=== PATIENT | female | born 1960 | race Caucasian/White ===

== ENCOUNTER 2019-03-27 09:25 | Emergency (ER) | payer OTHER ==
[~2019-03-27] VITALS: Ht 165.1 cm; Wt 72.6 kg
[~2019-03-27 09:25] MED LIST: ALDACTONE25 MG PO; COREG3.125 MG PO; DIGOXIN125 MCG PO; LISINOPRIL10 MG PO; LORTABELXR PO; PRINZIDE 20-251 EACH; ZPAK PO
[2019-03-27] MEDS ORDERED: ASA5UEC PO (09:40)
[2019-03-27] MEDS ORDERED: IBUPROFEN 800800 M1 PO (09:40)
[2019-03-27] MEDS ORDERED: ATORVASTATIN CA40 MG PO (09:40)
[2019-03-27] MEDS ORDERED: FLEXERIL PO (09:46)
[2019-03-27] MEDS ORDERED: NORCO 5-325 TA1 EACH PO (09:46)
[2019-03-27 10:14] VITALS: BP 130/90
== END 2019-03-27 10:15 | disposition home or self-care (01) ==
LOC: M.ERS 09:25
DX: S39.012A Strain of muscle, fascia and tendon of lower back, initial encounter (principal); I10 Essential (primary) hypertension; W07.XXXA Fall from chair, initial encounter; Y92.89 Other specified places as the place of occurrence of the external cause; Y93.89 Activity, other specified; Y99.8 Other external cause status

== ENCOUNTER 2019-03-29 09:51 | Inpatient (IN) | payer OTHER ==
[~2019-03-29] VITALS: Ht 165.1 cm; Wt 77.6 kg
--- NOTE | ~2019-03-29 | CON ---
[address] [address] CONSULTATION Name: HERBERT SENIOR Room: [address] IN M.R.#: [id number] Admission: 03/29/19 Attend Phys: Crystal Butt Discharge: Date of : 62 Report #: [id number] THIS REPORT FOR: //name// CC: Evan Thomas DO Elly Abdul DATE OF SERVICE: 03/30/2019 REQUESTING PHYSICIAN: Dr. Lugo. REASON FOR CONSULT: GI bleed. HISTORY OF PRESENT ILLNESS: This is a 58-year-old female who is currently intubated and is in ICU. The patient apparently presented to hospital yesterday reporting that she has not been feeling good for the past 4 weeks. The patient has also been complaining of back pain and has been taking NSAIDs and Flexeril. Since hospitalization, the patient was found to be severely thrombocytopenic and hypercalcemic. She also had some degree of renal failure, UTI, and pneumonia. This morning, the patient started having GI bleeding and her hemoglobin dropped from 8.8-6.6. She has a NG tube in place, which shows blood aspirate and also she has been passing blood per rectum. PAST MEDICAL HISTORY: Significant for history of hypertension, TIAs, history of angioplasty, history of removal of pancreatic cyst. ALLERGIES: No known drug allergy. MEDICATIONS: Please refer to MAR. SOCIAL HISTORY: The patient is and lives at home with and smoke half pack of cigarettes per day. She occasionally may have alcoholic beverage. FAMILY HISTORY: Unknown. PHYSICAL EXAMINATION: VITAL SIGNS: Reveals blood pressure of 100/38, respirations 24, pulse 107, temperature is 97.5. LUNGS: The patient is intubated and breath sounds are audible bilaterally. CARDIOVASCULAR: Tachycardic, but regular rhythm. ABDOMEN: Soft, nondistended. Bowel sounds are positive. NEUROLOGIC: The patient is sedated. She is intubated. LABORATORY DATA: Reveal sodium of 146, potassium 3.9, BUN is 71, creatinine 1.6 down from 4.6 yesterday, glucose is 137, AST is 251, ALT 47, [place] [address] CONSULTATION Name: HERBERT SENIOR Room: [address] IN [facility]#: [id number] Admission: 03/29/19 Attend Phys: Crystal Butt Discharge: Date of : 62 Report #: [id number] phosphatase 149, albumin 2.5. Lactic acid is 0.8. LDH is 1696. BMP is 1198. INR is 1.2. WBC is 5.8, hemoglobin is 6.6, and platelet is 68. This is after transfusion of a pack of platelets and initial platelet was 12. IMAGING: Abdominal ultrasound was ordered and pending result. ASSESSMENT AND PLAN: The patient with severe thrombocytopenia and anemia who has active GI bleeding and had presented with renal failure feeling poorly for the past 4 weeks. She has currently received 1 unit of packed RBC and her hemoglobin is pending post-transfusion. We will consider transfusing her one more unit if hemoglobin is below 7. She should also be on Protonix drip with 80 mg loading dose and 8 mg per hour. We will obtain ultrasound and a GGT to see why she has elevation of her AST. We will try to obtain more history as the patient is intubated and no family members around. By: 1435 [id number] Anne MD /nt
[~2019-03-29 09:51] MED LIST changes: +ASA5UEC PO; +ATORVASTATIN CA40 MG PO; +FLEXERIL PO; +IBUPROFEN 800800 M1 PO; +NORCO 5-325 TA1 EACH PO
[2019-03-29 09:58] VITALS: BP 91/36
[2019-03-29 10:09] LABS: HEMATOCRIT 23.7 % (37.0-47.0); HEMOGLOBIN 8.3 gm/dL (12.0-15.0); MCH 30.4 pg (26.0-34.0); MCHC 34.9 g/dL (28.0-37.0); MCV 87.3 fL (80.0-100.0); MPV 8.3 fl. (7.2-11.1); NUCLEATED RBCS 1 /100WBC; RBC 2.71 mil/uL (4.20-5.00); RDW-CV 13.4 % (10.5-14.5); WBC 7.2 thou/uL (4.0-11.0)
[2019-03-29 10:25] LABS: APTT 22.6 Seconds (25.0-31.3); INR 1.1; PROTIME 10.9 Seconds (9.20-11.50)
[2019-03-29 10:28] LABS: PLATELET COUNT* 17 thou/uL (150-400)
[2019-03-29 10:30] LABS: CREATININE 4.6 mg/dL (0.6-1.3); POTASSIUM 4.7 mmol/L (3.5-5.1)
[2019-03-29 10:40] LABS: ALBUMIN 2.5 g/dL (3.4-5.0); TOTAL BILIRUBIN 0.5 mg/dL (<0.1-1.0); TOTAL PROTEIN 5.8 g/dL (6.4-8.2)
[2019-03-29 10:45] LABS: CALCIUM 12.7 mg/dL (8.5-10.1)
[2019-03-29 11:17] LABS: ABSOLUTE EOSINOPHILS 0.1 thou/uL (0.0-0.7); ABSOLUTE LYMPHOCYTES 2.3 thou/uL (0.8-5.3); ABSOLUTE MONOCYTES 0.4 thou/uL (0.0-1.2); ABSOLUTE NEUTROPHILS 4.3 thou/uL (1.6-8.1); BLASTS 1 %; METAMYELOCYTES 1 %; MYELOCYTES 1 %
[2019-03-29 11:18] LABS: ANISOCYTOSIS 1+; HYPOCHROMASIA 1+; PLATELET ESTIMATE DECREASED; POIKILOCYTOSIS 1+; POLYCHROMASIA 1+
[2019-03-29 11:30] LABS: URINE BILIRUBIN NEGATIVE (Negative); URINE BLOOD TRACE (Negative); URINE CLARITY CLEAR; URINE COLOR YELLOW; URINE GLUCOSE-RANDOM NEGATIVE (Negative); URINE KETONES NEGATIVE (Negative); URINE LEUKOCYTES-REFLEX 2+ (Negative); URINE NITRITE-REFLEX NEGATIVE (Negative); URINE PROTEIN 1+ (Negative); URINE SPECIFIC GRAVITY 1.025 (1.005-1.030); URINE UROBILINOGEN 0.2 E.U./dl (0.2-1.0)
[2019-03-29 11:32] LABS: BACTERIA-REFLEX >30 Many /HPF (None Seen); CASTS None Seen /LPF (None Seen); CRYSTALS None Seen /LPF (None Seen); MUCUS 0-3 Light strn/LPF (None Seen); SQUAMOUS 0-3 Few /LPF (0-3); URINE RBC 0-2 Rare /HPF (0-2)
--- NOTE | 2019-03-29 12:49 | NUR ---
PT EATING HER LUNCH, INDEPENDENT
--- NOTE | 2019-03-29 15:22 | EKG ---
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 NORMAN : 1960 Requested By: Phan Velasquez Order Number: [id number] MD: James Almaguer Measurements Intervals [place] Rate: 96 P: 37 ME: 117 QRS: 44 QRSD: 92 T: 42 QT: 335 QTc: 424 Interpretive Statements Sinus rhythm Borderline short ME interval Compared to ECG 07/29/2015 10:52:10 Sinus arrhythmia no longer present Electronically Signed On 03-29-2019 15:22:40 CDT by James Almaguer [email or web address] <ELECTRONICALLY SIGNED> By: James Almageur MD, FACC 03/29/19 1522 0955 [id number] James Almaguer MD, [facility] /EPI
[2019-03-29 15:33] LABS: ABSOLUTE BASOPHILS 0.1 thou/uL (0.0-0.2); ABSOLUTE EOSINOPHILS 0.1 thou/uL (0.0-0.7); ABSOLUTE LYMPHOCYTES 1.6 thou/uL (0.8-5.3); ABSOLUTE MONOCYTES 0.3 thou/uL (0.0-1.2); ABSOLUTE NEUTROPHILS 3.3 thou/uL (1.6-8.1); BASOPHILS 1.1 %; EOSINOPHILS 2.3 %; HEMATOCRIT 21.9 % (37.0-47.0); HEMOGLOBIN 7.6 gm/dL (12.0-15.0); MCH 30.6 pg (26.0-34.0); MCHC 34.9 g/dL (28.0-37.0); MCV 87.7 fL (80.0-100.0); MONOCYTES 5.7 %; MPV 7.8 fl. (7.2-11.1); NUCLEATED RBCS 1 /100WBC; POLYS 61.9 %; RBC 2.49 mil/uL (4.20-5.00); RDW-CV 13.5 % (10.5-14.5); WBC 5.4 thou/uL (4.0-11.0)
[2019-03-29 15:36] LABS: PLATELET COUNT* 14 thou/uL (150-400)
[2019-03-29 16:08] VITALS: BP 104/57
--- NOTE | 2019-03-29 17:30 | NUR ---
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 PATIENT ARRIVED ON UNIT AT 1615 VIA GURNEY AND ER STAFF. ORIENTED TO SELF AND SITUATION. LETHARGIC, MUMBLES IF CONVERSING WITH SOMEONE ELSE. 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 O2 SATS 98% 2L. BP L ARM 107/39 P 94; BP R ARM 128/57 P 104. REPORTS MILD PAIN IN LOW BACK. AFEBRILE. UP WITH UNSTEADY GAIT TO BR. BRUISING ON SKIN WITH 3 CM ABRASION ON R KNEE. PATIENT STATES SHE FELL 3-4 TIMES YESTERDAY. ORIENTED TO ROOM, CALL LIGHT. BED ALARM ON. CALL LIGHT IN REACH.
[2019-03-29 18:00] VITALS: BP 107/39
[2019-03-29 20:00] VITALS: BP 92/50
--- NOTE | 2019-03-29 21:02 | H ---
[address] [address] HISTORY AND PHYSICAL Name: NADEEN,HERBERTHARRIETT ODONNELL Room: [address] IN M.R.#: [id number] Admission: 03/29/19 Attend Phys: Crystal Butt Discharge: Date of : 62 Report #: [id number] THIS REPORT FOR: //name// CC: Evan Abdul DATE OF SERVICE: 03/29/2019 CHIEF COMPLAINT: "I don't feel good." HISTORY OF PRESENT ILLNESS: The patient is a 58-year-old lady who does have history of hypertension, who presented to us here for "not feeling good." The patient said that she is not feeling good for 4 weeks. She really cannot describe the feeling, she has been weak and tired. She started having back pain about 3 weeks ago, came to the Emergency Room and was given Flexeril. She was discharged also on pain meds. thought that she was getting confused at home because of the pain meds, then presented to the Emergency Department for that today. She got Narcan and then symptoms have improved. The patient tells me that she was having pain in her back and also on her both of the thighs. She just had an MRI done early part of this month by the PCP. thought he had a discplaced disc. She has not seen a neurosurgeon. In the Emergency Room, the patient was noted to be thrombocytopenic, hypercalcemic and acute renal failure. She also has noted to have UTI and pneumonia. She is then being admitted for further management for that. PAST MEDICAL HISTORY: Hypertension, enlarged heart. The patient has a history of angioplasty, but denies it. She does have a TIA, but no neurologic deficits. Denies any history of diabetes or CAD. PAST SURGICAL HISTORY: Pancreatic cyst removal, although the patient does not remember that. FAMILY HISTORY: Denies any hypertension or diabetes in the family. They apparently are pretty healthy. SOCIAL HISTORY: The patient is and lives with her , smokes one-half of pack of cigarettes per day and she knows that she needs to stop smoking. She occasionally drinks alcohol, but not every day. No illicit drug use. ALLERGIES: No known drug allergies. HOME MEDICATIONS: Lisinopril 10 mg b.i.d., carvedilol 3.125 b.i.d., spironolactone 12.5 mg daily, atorvastatin 40 mg daily, aspirin enteric 1 tab p.o. daily, and Ibuprofen 800 every 6 hours. REVIEW OF SYSTEMS: The patient does have fever, chills, coughing, [place] [address] HISTORY AND PHYSICAL Name: HERBERT SENIOR BELLE Room: [address] IN [facility]#: [id number] Admission: 03/29/19 Attend Phys: Crystal Butt Discharge: Date of : 62 Report #: [id number] shortness of breath. No chest pain, no nausea or vomiting. She tells me that she still has good urine output. She has decreased p.o. intake; however, no nausea, no vomiting, no diarrhea. A 12-point review of systems is unremarkable as I mentioned above. PHYSICAL EXAMINATION: VITAL SIGNS: Temperature is 37.4, heart rate of 93, respiratory rate 17, blood pressure is 85/54, earlier it was 91/36 and 91% on 2 liters nasal cannula. GENERAL: The patient is alert. She seems to be in pain, not in acute respiratory distress. HEENT: Normocephalic, atraumatic. Nares are patent. Clear oropharynx. NECK: Supple. No lymphadenopathy. CARDIOVASCULAR: Normal rate, regular rhythm. No murmurs noted. RESPIRATORY: She does have diminished breath sounds on exam, but no wheezing. GASTROINTESTINAL: Abdomen is soft, nontender, nondistended, good bowel sounds. MUSCULOSKELETAL: She does have tenderness in the back. She does have tenderness in both of his thighs, moves extremities well. LABORATORY DATA: Reviewed and CBC showed hemoglobin of 8.3, white count is 7.2, platelet is 17 and that is currently now being repeated, bands of 14%. Blood cultures have been drawn and pending. Urine did show 1+ protein, 1+ blood, and leukocyte esterase 2+. Chemistry shows sodium 135, potassium is 4.7, chloride is 101, carbon dioxide 21, anion gap is 13, BUN 77, creatinine is 4.6, and glucose is 97. Lactic acid 0.8, calcium is 12.7, AST 251, ALT is 47, alkaline phosphatase 149. CK is 254. BNP is 1198, albumin is 2.5. Chest x-ray showed focal infiltrate in the left mid lung with tiny pleural effusion. IMPRESSION: 1. The patient is a 58-year-old female admitted in the hospital for toxic metabolic encephalopathy, likely secondary to pain medications, improved, possibly also has a component of uremia and acute renal failure. 2. Urinary tract infection. 3. Possible Gram-negative pneumonia. 4. Thrombocytopenia. 5. Anemia, unsure if it is acute or chronic. 6. Hypercalcemia, might be secondary to dehydration and elevated liver enzymes. 7. Hypoalbuminemia. 8. Known hypertension. 9. Acute renal failure, likely secondary to prerenal etiology on top of the patient's use of spironolactone and also nonsteroidal anti-inflammatory drug. PLAN: The patient will be admitted. I expect this patient is going to be here more than 2 midnights. We will go ahead and repeat the CBC given that the platelet is so low. She is currently not bleeding, so we will not transfuse her. I will send her for iron studies for her anemia. We will ask hematology to see. We will put her on Rocephin and Zithromax for her urinary tract infection and pneumonia. She has been given Zosyn in the ED. We will hold her spironolactone and her ibuprofen. We will ask Renal to see [place] [address] HISTORY AND PHYSICAL Name: HERBERT SENIOR Room: [address] IN [facility]#: [id number] Admission: 03/29/19 Attend Phys: Crystal Butt Discharge: Date of : 62 Report #: [id number] the patient's statin given the elevated liver enzymes. Discussed with the patient regarding code status and she is a full code. <ELECTRONICALLY SIGNED> By: Elly Abdul MD 03/29/19 2102 1458 [id number] Abdul MD /carolina
[2019-03-30] VITALS (35 sets, daily range): BP systolic 66–144; BP diastolic 34–66
[2019-03-30 05:09] LABS: MCH 31.2 pg (26.0-34.0); MCHC 35.7 g/dL (28.0-37.0); MCV 87.3 fL (80.0-100.0); MPV 8.3 fl. (7.2-11.1); RBC 2.11 mil/uL (4.20-5.00); RDW-CV 13.4 % (10.5-14.5); WBC 5.8 thou/uL (4.0-11.0)
[2019-03-30 06:16] LABS: CALCIUM 11.1 mg/dL (8.5-10.1); POTASSIUM 4.6 mmol/L (3.5-5.1)
[2019-03-30 06:22] LABS: CREATININE 2.3 mg/dL (0.6-1.3)
[2019-03-30 06:29] LABS: HEMOGLOBIN 6.6 gm/dL (12.0-15.0)
[2019-03-30 06:30] LABS: HEMATOCRIT 18.5 % (37.0-47.0)
--- NOTE | 2019-03-30 07:51 | NUR ---
PT CARE ASSUMED AT 1930. SAT MAINTAINED IN MD. PT IS CONFUSED. CALL LIGHT WITHIN REACH AND BED IN LOW POSITION. DENIES PAIN AND SOB. HOURLY ROUNDING DONE FOR PT SAFETY.
--- NOTE | 2019-03-30 11:49 | NUR ---
PT TRANFERED FROM 2E. ACTIVE GI BLEED. 1U PRBC INFUSING AT THIS TIME. CENTRAL LINE PLACED BY DR FUNEZ. PT UNABLE OR UNWILLING TO SIT STILL DURING PROCEDURE. ATIVAN 1MG IV GIVEN FOR RELAXATION WITH NO RESULT. PT MOANING NOW AND UNABLE TO STATE WHY.
--- NOTE | 2019-03-30 12:08 | NUR ---
PT. TRANSFERRED TO ICU. WILL NEED RESUME ORDERS FOR OT EVALUATION.
[2019-03-30 12:11] LABS: BE -8.1 mmol/L (-2 to +3); PCO2 28.6 mmHg (35.0-45.0); PO2 83.3 mmHg (75.0-100.0); pH 7.373 (7.340-7.450)
--- NOTE | 2019-03-30 13:01 | NUR ---
1300 TIME OUT CALLED. ETOMIDATE 20 MG,SUCCINYCHOLINE 100 MG GIVEN 1301 7.[address] BY DR FUNEZ. 24 CM AT LIP POSITIVE COLOR CHANGE, BILAT EQUAL BREATH SOUNDS. OG PLACED 60 AT LIP,DARK RED GASTRIC CONTENTS. VENT SETTINGS R 16 VT 550 PEEP 5 AND 50%
--- NOTE | 2019-03-30 13:19 | NUR ---
PT INTUBATED BY DR FUNEZ. SEDATION STARTED.
--- NOTE | 2019-03-30 13:24 | NUR ---
I ASSUMED CARE OF PT AT APPROX 0730, FULL ASSESMENT DONE CHARTED. PT ORIENTED X4, ANSWERS QUESTIONS APPROPRIALTY, IS DROWSY BU AROUSABLE. PTS BP SOFT THIS AM, WAS RECHECKED AND FOUND TO BE LOWER. NOTIFIED, ORDERS RECEIVED. PT UP TO BR SEVERAL TIMES. C/O DARK STOOLS, ON INSPECTION PT DID HAVE DARK AND BRIGHT RED BLOOD MIXED WITH STOOL. NOTIFIED AND ORDERS FOR PT TO TRANSFER TO ICU GIVEN. REPORT GIVEN TO BRENT COLEY IN ICU, PT TRANSFERED AT APPROX 1025
[2019-03-30 13:49] LABS: CALCIUM 9.8 mg/dL (8.5-10.1); CREATININE 1.6 mg/dL (0.6-1.3); POTASSIUM 3.9 mmol/L (3.5-5.1)
[2019-03-30 13:50] LABS: APTT 24.5 Seconds (25.0-31.3); INR 1.2; PROTIME 12.6 Seconds (9.20-11.50)
[2019-03-30 15:17] LABS: BE -7.4 mmol/L (-2 to +3); PCO2 36.5 mmHg (35.0-45.0); PO2 82.3 mmHg (75.0-100.0); pH 7.314 (7.340-7.450)
[2019-03-30 15:48] LABS: HEMOGLOBIN 5.9 gm/dL (12.0-15.0)
[2019-03-30 16:07] LABS: INR 1.2; PROTIME 11.9 Seconds (9.20-11.50)
--- NOTE | 2019-03-30 19:32 | NUR ---
PT CARE ASSUMED AFTER TRANFER FROM TELEMETRY WITH HYPOTENSION. HGB AND PLATLETS CRITICLE. RPLACED AND H AND H, PLT REDRAWN. 2 ADDITIONAL UNITS OF BLOOD ORDERED AND INFUSING NOW. PT DIFFICULT TO SEDATE. ON PROPOFOL, VERSED, AND FENTANYL AND CONTINUES TO TRY TO PULL AT TUBES. BILATERAL WRIST RESTRAINTS IN PLACE. FAMILY HERE AND WERE UPDATED ON PT CONDITION.
[2019-03-30 21:23] LABS: HEMATOCRIT 24.5 % (37.0-47.0); MCH 30.8 pg (26.0-34.0); MCHC 34.7 g/dL (28.0-37.0); MCV 88.8 fL (80.0-100.0); MPV 7.3 fl. (7.2-11.1); RBC 2.75 mil/uL (4.20-5.00); RDW-CV 14.6 % (10.5-14.5); WBC 9.8 thou/uL (4.0-11.0)
[2019-03-30 21:33] LABS: HEMOGLOBIN 8.5 gm/dL (12.0-15.0)
[2019-03-31] VITALS (23 sets, daily range): BP systolic 63–140; BP diastolic 32–55
[2019-03-31 04:46] LABS: ABSOLUTE BASOPHILS 0.1 thou/uL (0.0-0.2); ABSOLUTE EOSINOPHILS 0.3 thou/uL (0.0-0.7); ABSOLUTE LYMPHOCYTES 2.4 thou/uL (0.8-5.3); ABSOLUTE MONOCYTES 1.1 thou/uL (0.0-1.2); BASOPHILS 0.7 %; HEMATOCRIT 24.3 % (37.0-47.0); HEMOGLOBIN 8.6 gm/dL (12.0-15.0); LYMPHOCYTES 24.4 %; MCH 31.4 pg (26.0-34.0); MCHC 35.2 g/dL (28.0-37.0); MCV 89.3 fL (80.0-100.0); MONOCYTES 10.8 %; MPV 7.3 fl. (7.2-11.1); NUCLEATED RBCS 7 /100WBC; PLATELET COUNT* 57 thou/uL (150-400); POLYS 61.1 %; RBC 2.72 mil/uL (4.20-5.00); RDW-CV 14.3 % (10.5-14.5); WBC 9.8 thou/uL (4.0-11.0)
[2019-03-31 05:10] LABS: CALCIUM 10.6 mg/dL (8.5-10.1); CREATININE 1.3 mg/dL (0.6-1.3); POTASSIUM 3.7 mmol/L (3.5-5.1); TOTAL PROTEIN 4.8 g/dL (6.4-8.2)
[2019-03-31 05:32] LABS: MAGNESIUM 0.9 mg/dL (1.8-2.4)
--- NOTE | 2019-03-31 05:42 | NUR ---
REPORT RECEIVED FROM OFF GOING [facility]. PT IS VERY RESTLESS AND MOVING, NE WORDERS RECEIVED. DR ROMERO HERE ASSESSING PT. ETT7.5 24 @LIP INTACT AND CONNECTED TO VENTILATOR WITH SETTINGS OFAC16, TV550, PEEP5, FIO2 50%. RED DC NOTED WHEN SUCTIONED ETT TUBE. OGT INTACT AND CONNECTED OT LIS AND DRAINING BLACK COLORED SECRETIONS. SANCHEZ INTACT AND PATENT DRAINING YELLOW URINE. FECAL TUBE INTACT. VSS NO ACUTE CHANGES DURING SHIFT WILL CONTINUE OT MONITOR.
[2019-03-31 06:43] LABS: PCO2 30.3 mmHg (35.0-45.0); PO2 97.6 mmHg (75.0-100.0); pH 7.356 (7.340-7.450)
--- NOTE | 2019-03-31 08:51 | CON ---
[address] [address] CONSULTATION Name: HERBERT SENIOR Room: [address] IN M.R.#: [id number] Admission: 03/29/19 Attend Phys: Crystal Butt Discharge: Date of : 62 Report #: [id number] THIS REPORT FOR: //name// CC: Evan Abdul This is a consultation obtained by Dr. Abdul. REASON FOR CONSULTATION: Acute kidney injury. HISTORY OF PRESENT ILLNESS: The patient is a 58-year-old female who was admitted with chief complaint of not feeling well over the past few days. The patient apparently has made some trips to the ER recently for being weak, fatigued and tired and has been given some pain medications for her back pain. Apparently, she has also been taking some ibuprofen 3 times a day for the past many days. The patient was found to be more confused at home and brought back by the to the ER. She was given some Narcan and her symptoms did improve. She was admitted because of acute kidney injury. A chest x-ray also suggested a possible pneumonia and she was also found to have a UTI on urinalysis. This morning, the patient is very fatigued, lethargic and tired. She does appear very restless and wants to go home. She has been on IV fluids overnight and her renal function has shown improvement. On admission, she was found to be hypercalcemic which has also been improving with IV fluids. PAST MEDICAL HISTORY: Significant for hypertension, cardiomegaly, history of TIAs, but no history of diabetes reported, chronic back pain, apparently has been told she might have a slipped disk, pancreatic cyst removal. FAMILY HISTORY: No family history of ESRD. SOCIAL HISTORY: Lives with the , he smokes one half pack of cigarettes per day, occasional alcohol. ALLERGIES: None. HOME MEDICATIONS: Lisinopril, carvedilol, spironolactone, Lipitor, aspirin and ibuprofen recently. REVIEW OF SYSTEMS: She appears very restless and tired and wants to go home. Denies any chest pain, no fevers, rigors or chills overnight. Per nursing staff, she has been episodically confused also. PHYSICAL EXAMINATION: VITAL SIGNS: On my examination, I reviewed her blood pressures this admission and also found her blood pressures have been low in the low 90s to [place] [address] [address] CONSULTATION Name: HERBERT SENIOR Room: [address]#: [id number] Admission: 03/29/19 Attend Phys: Crystal Butt Discharge: Date of : 62 Report #: [id number] Her pulse rate this morning was 103. She is afebrile. HEENT: Mucous membranes are dry. LUNGS: Diminished bilaterally, but clear. CARDIOVASCULAR: Regular S1 and S2. ABDOMEN: Soft, nontender. EXTREMITIES: Show no edema. SKIN: Dry. No new rashes are noted. LABORATORY DATA: Reviewed. Her white count this morning is 5.8, hemoglobin is 6.6, platelets are 12,000. Hemoglobin was 8.3 on admission and has been steadily dropping. INR is 1.1. Metabolic panel: Sodium is 144, potassium 4.6, chloride 111, bicarbonate 22, BUN is 17, creatinine is 2.3, down from 4.6 yesterday, and BUN was 77 yesterday. Lactic acid 0.8, calcium 11.1 today, but 12.7 yesterday. Iron saturation 42% on admission. Liver function test: AST was elevated to 51, ALT 47, CK level 254, total bilirubin 0.5. Urinalysis suggested 1+ protein, trace blood, 2+ leukocyte esterase, many wbc's and 0-2 rbc's with many bacteria. An ultrasound of the kidneys was obtained and that shows right kidney 10.5 cm, left kidney 9.7 cm, simple cyst in the right kidney. No solid masses or hydronephrosis were noticed. Chest x-ray was reviewed, shows focal infiltrate in the left mid lung with tiny left effusion. ASSESSMENT: 1. Acute kidney injury. Do not know the patient's baseline, but creatinine was 1.1 in 07/2015. 2. History of recent back pain and heavy use of ibuprofen. 3. Anemia with thrombocytopenia. 4. Hypertension. PLAN: 1. Acute kidney injury secondary to volume depletion, heavy use of NSAIDs recently, on lisinopril at home recently. 2. IV fluids. Her renal function has improved. Continue the same fluids for now. 3. Send the urine for electrolytes. 4. Her anemia and thrombocytopenia is concerning. We will check a peripheral smear and also send haptoglobin and LDH levels to rule out hemolysis.Unlikely to be TTP as he r renal function has improved but considering the anemia and throbocytopenia other hematological ds need to be ruled out 5. The importance of doing the peripheral smear was explained to the nurse in detail and sample has been sent to pathology now. 6. The improvement of the renal function is encouraging. We will continue to follow closely. Please avoid all nephrotoxic medications and keep the patient [address] [address] CONSULTATION Name: HERBERT SENIOR Room: [address] IN ..#: [id number] Admission: 03/29/19 Attend Phys: Crystal Butt Discharge: Date of : 62 Report #: [id number] on a renal diet for now. Thank you for the consultation. <ELECTRONICALLY SIGNED> By: Jhony Lopez MD 03/31/19 0851 0822 1319Jhony Lopez MD /nt
--- NOTE | 2019-03-31 12:07 | CON ---
[address] [address] CONSULTATION Name: NADEENHERBERTHARRIETT ODONNELL Room: [address] IN M.R.#: [id number] Admission: 03/29/19 Attend Phys: Crystal Butt Discharge: Date of : 62 Report #: [id number] THIS REPORT FOR: //name// CC: Evan Abdul DATE OF SERVICE: 03/30/2019 REASON FOR CONSULTATION: Severe thrombocytopenia and anemia. HISTORY OF PRESENT ILLNESS: A 58-year-old female with a past medical history of hypertension, was admitted because of generalized weakness that started for the last 4 weeks. The patient was evaluated in the Emergency Room 3 weeks ago. She was given Flexeril and discharged on pain medications. However, per the , she has been getting more lethargic and confused after taking pain medication. She was given Narcan at the Emergency Room and her symptoms improved. The patient upon admission, her hemoglobin was 8.3, dropped to 6.7 and the platelet count was 17, dropped to 12. Prior labs back in 2014, her platelet count was 130. Per reviewing her peripheral blood smear, there was 1% blast with nucleated RBCs, +1 hypochromasia and poikilocytosis and anisocytosis. The patient by the time of evaluation, her LDH was elevated at 1696 with renal failure and creatinine was 2.3. REVIEW OF SYSTEMS: Unable to be obtained due to her lethargy. PAST MEDICAL HISTORY: Cardiomyopathy, prior TIA. PAST SURGICAL HISTORY: Pancreatic cyst removal. FAMILY HISTORY: Noncontributory. SOCIAL HISTORY: She is , lives at home. Smokes 1/2 pack cigarettes per day for many years. She drinks alcohol socially. No drug abuse. ALLERGIES: No known allergies. MEDICATIONS: Per admission list. PHYSICAL EXAMINATION: VITAL SIGNS: Today, temperature is 36.4, pulse is 107, respirations 24, blood pressure is 100/38, SpO2 is 94% on 2 liters. GENERAL: The patient was lying in bed. HEENT: Head atraumatic, normocephalic. The patient had IJ with minor bleed around the surgical site. HEART: Tachycardic, but regular. S1, S2 within normal limits. LUNGS: Diminished breathing sounds. [place] [address] CONSULTATION Name: HERBERT SENIOR Room: [address]#: [id number] Admission: 03/29/19 Attend Phys: Crystal Butt Discharge: Date of : 62 Report #: [id number] ABDOMEN: Soft, nondistended. LABORATORY DATA: As mentioned above. In addition to that, chemistry, creatinine is 2.3, BUN is 70. Lactic acid is 0.8, ferritin 2543. Total bilirubin is 0.5, AST is 251, ALT is 47, alkaline phosphatase is 149, LDH is 1696. B12 was 500. Coagulation, PT was 10.9, PTT 22.6. Urine showed +1 protein, trace of blood, negative nitrites, +2 leukocyte, bacteria more than 30. IMAGING STUDIES: Chest x-ray showed worsening consolidation of the mid left lung and strongly suggestive of pneumonia. Renal ultrasound showed no acute abnormalities. There is a simple cyst, 1.6 cm. ASSESSMENT AND PLAN: A 58-year-old female who presented because of severe anemia and thrombocytopenia. In addition to renal failure, the patient had no schistocytes on her peripheral blood smear; however, there is blast/nucleated red blood cell. I do suspect the patient had myeloid process in the setting of renal failure and elevated LDH along with pneumonia. The clinical suspicion for leukemia/myeloid disorder. I discussed with the hospitalist. The patient will require multiple platelet transfusions at this point along with PRBCs. She will need a bone marrow biopsy. Recommend to continue supportive care at this point along with blood transfusion and antibiotics. We will check for phosphorus, uric acid and magnesium. I recommend also to consider transferring to tertiary center. <ELECTRONICALLY SIGNED> By: Robert Lugo MD 03/31/19 1207 1229 [id number] Lugo MD /nt
[2019-03-31 12:36] LABS: CALCIUM 10.3 mg/dL (8.5-10.1); CREATININE 1.3 mg/dL (0.6-1.3); HEMATOCRIT 22.1 % (37.0-47.0); HEMOGLOBIN 7.6 gm/dL (12.0-15.0); MAGNESIUM 2.7 mg/dL (1.8-2.4); MCH 30.4 pg (26.0-34.0); MCHC 34.6 g/dL (28.0-37.0); MCV 87.9 fL (80.0-100.0); MPV 7.1 fl. (7.2-11.1); RBC 2.51 mil/uL (4.20-5.00); RDW-CV 14.6 % (10.5-14.5); WBC 8.5 thou/uL (4.0-11.0)
--- NOTE | 2019-03-31 15:35 | NUR ---
PT CARE ASSUMED AFTER REPORT. PT SR/ST ON MONITOR. REMAINS ON VENTILATOR AND SEDATION. RESTRAINTS TO BILATERAL WRISTS TO PREVENT PT FROM PULLING ET TUBE LOOSE/OUT.TO RADIOLOGY FOR HEAD CT TODAY. TOLERATED WELL. FECAL MANAGEMENT BAG WITH NO OUTPUT. SANCHEZ TO DD WITH GOOD OUTPUT. NO S/S OF PAIN. PT TO TRANSFER TO [facility] FOR POSSIBLE LEUKEMIA. REPORT CALLED TO VIANCA DURAN. PT FAMILY AWARE OF NEED FOR TRANSFER AND AGREE TO IT.
--- NOTE | 2019-03-31 16:44 | NUR ---
[facility] HERE FOR TRANSPORT TO . FAMILY TOOK BELONGINGS. 4 IV PUMPS LEFT WITH PT TO .
--- NOTE | 2019-04-01 10:49 | CON ---
[address] [address] CONSULTATION Name: NADEENHERBERTHARRIETT ODONNELL Room: [address] IN M.R.#: [id number] Admission: 03/29/19 Attend Phys: Crystal Butt Discharge: 03/31/19 Date of : 62 Report #: [id number] THIS REPORT FOR: //name// CC: Evan Abdul REASON FOR EVALUATION: Acute respiratory failure, hemoptysis, possible pneumonia. HISTORY OF PRESENT ILLNESS: The patient is a 58-year-old woman with past medical history of hypertension. She presented with fatigue, not feeling well for several at least 4 weeks. In addition to that, the patient had some confusion. She was given Narcan minimal improvement. Since admission, the patient was found to have severe thrombocytopenia hypercalcemia and acute renal failure. Also, was found to have left lower lobe infiltrate. Yesterday, the patient with altered mental status was intubated, currently she is on 50% and 5 of PEEP. Son is at the bedside. Currently, she is on Levophed at 5. She is on sedation Precedex, fentanyl. PAST SURGICAL HISTORY: Pancreatic cyst removal. PAST MEDICAL HISTORY: Hypertension, history of coronary artery disease, history of TIA. FAMILY HISTORY: No hypertension. SOCIAL HISTORY: She is . She is active. She smokes half pack per day. ALLERGIES: None. CURRENT MEDICATIONS: Noted. REVIEW OF SYSTEMS: Unable to obtain, the patient is intubated and sedated. REVIEW OF SYSTEMS: Otherwise obtained from the records, other physician as well as her family. In summary, she is active, she usually works in her yard. She, over the last few weeks, has history of confusion and fatigue. Otherwise, 12-point review of systems as above. PHYSICAL EXAMINATION: GENERAL: The patient is sedated, not in distress. VITAL SIGNS: Her temperature 100.6, pulse is 110, blood pressure 126/50, O2 saturation 97%. HEAD AND NECK: Supple. Oral mucosa clear. ET tube, there is frothy bloody secretions. CHEST: [place] [address] CONSULTATION Name: HERBERT SENIOR Room: [address]#: [id number] Admission: 03/29/19 Attend Phys: Crystal Butt Discharge: 03/31/19 Date of : 62 Report #: [id number] CARDIOVASCULAR: Regular rhythm. ABDOMEN: Soft, nontender. EXTREMITIES: Trace edema. PSYCHIATRIC: Unable to evaluate. NEUROLOGY: Unable to evaluate. LABORATORY AND OTHER DATABASE: Her white blood cell count 2.7, hemoglobin has stabilized at 8.7, initially was 5.9 on 03/30/2019. Her platelet count is 57 after platelet transfusion, was 12,000 on 03/30/2019. A chest x-ray, which I have reviewed, showed dense left lower lobe consolidation. However, also she her ET tube is on top of the rita. ASSESSMENT AND PLAN: 1. Acute respiratory failure. Discussed with Hematology/Oncology. There is suspicion for leukemia at this time with the presence of blast cells. Suspect the patient is immunocompromised. At this time, I recommend to expand her antibiotic coverage. Currently, ID is on board. 2. Acute respiratory failure, hemoptysis, we will proceed with bronchoscopy with the risk of opportunistic infection and significant hemoptysis. Alveolar hemorrhage is less likely as her alveolar infiltrate and consolidation is mainly unilateral and her hemoglobin has stabilized. 3. Septic shock. This is less likely to be hemorrhagic as currently her hemoglobin has stabilized expanding antibiotics as above. We will do bronchoscopy for obtaining cultures. At this time, recommend stress dose steroids with hydrocortisone. 4. Thrombocytopenia, we will defer to. Differential diagnosis includes leukemia; however, with the presence of confusion, other differential include thrombotic thrombocytopenic purpura, TTP. We will defer to Hematology who is doing the work up. TTP is possible, other differential include antiphospholipid syndrome. We will continue to follow up closely with you. Critical care time taking care of the patient 40 minutes. <ELECTRONICALLY SIGNED> By: Eugene Estrada MD 04/01/19 1049 [id number] [id number] Estrada MD /nt
--- NOTE | 2019-04-01 10:49 | OP ---
[address] [address] OPERATIVE REPORT Name: HERBERT SENIOR Room: [address] IN M.R.#: [id number] Admission: 03/29/19 Attend Phys: Crystal Butt Discharge: 03/31/19 Date of : 62 Report #: [id number] THIS REPORT FOR: //name// CC: Evan Abdul INDICATION: Hemoptysis, respiratory failure, rule out opportunistic infection. DESCRIPTION OF PROCEDURE: Consent obtained from the son. After sedation with Versed 2 mg, fentanyl 25, the patient was already on sedation, she was then intubated. A bronch was advanced through ET tube. The ET tube was low. It was pulled back additional 1 cm. Charla looked sharp. There was no hemoptysis or active bleeding. The right side looked clear. Left side, there is in the left lower lobe minimal old blood clots; however, no active bleeding. Bronchoalveolar lavage was done from the left lower lobe, which returned slightly cloudy return; however, no alveolar hemorrhage. Sample will be sent for mycobacterial, fungal and bacterial, and to rule out opportunistic infection. The patient tolerated the procedure well with adequate saturation. <ELECTRONICALLY SIGNED> By: Eugene Estrada MD 04/01/19 1049 1142 1240Asem MD alejandra Hobson
--- NOTE | 2019-04-04 14:08 | CON ---
[address] [address] CONSULTATION Name: NADEENHERBERTHARRIETT ODONNELL Room: [address] IN M.R.#: [id number] Admission: 03/29/19 Attend Phys: Crystal Butt Discharge: 03/31/19 Date of : 62 Report #: [id number] THIS REPORT FOR: //name// CC: Evan Abdul DATE OF SERVICE: 03/31/2019 INFECTIOUS DISEASE CONSULTATION ATTENDING PHYSICIAN: Dr. Del Angel. REASON FOR EVALUATION: Sepsis, pneumonia, complicated urinary tract infection. HISTORY OF PRESENT ILLNESS: Chart reviewed, patient examined. This is a 58-year-old woman with known history of low back pain, apparently recently diagnosed with degenerative disk disease. She was at the pharmacy, she fell, was brought to the Emergency Room, was admitted to the floor. However, she had deterioration in her overall status. She was transitioned to the Intensive Care Unit and she was emergently intubated, now on mechanical ventilatory support. She was found to have some significant abnormalities including thrombocytopenia, profound anemia, concern about acute leukemia as well. On imaging, there is question of pneumonitis, likely on the basis of aspiration and did have urinalysis, which showed moderate marked pyuria as well as marked bacteriuria. She was started empirically on broad-spectrum antibiotic therapy with piperacillin and tazobactam. At this point, she is sedated on the ventilator. Hemodynamically, she did respond to fluid resuscitation, had briefly been on pressor support. ALLERGIES: None known. MEDICATIONS: Currently include ipratropium with albuterol inhaler, Zosyn, p.r.n. analgesics, antiemetics, anxiolytics, fluid resuscitation, carvedilol as needed. 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 SOCIAL HISTORY: Smokes half pack per day for last 42 years, occasional ethanol. No illicit drug use. FAMILY HISTORY: Noncontributory. REVIEW OF SYSTEMS: [place] [address] CONSULTATION Name: HERBERT SENIOR BELLE Room: [address]#: [id number] Admission: 03/29/19 Attend Phys: Crystal Butt Discharge: 03/31/19 Date of : 62 Report #: [id number] PHYSICAL EXAMINATION: GENERAL: She is sedated, supine on the vent. VITAL SIGNS: Temperature 99.3, T-max of 100.2, pulse 127, respirations 16, blood pressure 126/50. SKIN: Warm, dry. No rashes. HEENT: Normocephalic. NECK: Supple. LUNGS: Few scattered coarse breath sounds. HEART: Tachycardic, regular. I do not appreciate murmur. ABDOMEN: Soft. There are no peritoneal signs. GENITOURINARY AND RECTAL: Deferred. LABORATORY DATA: Blood cultures sterile thus far. Abdominal ultrasound showed mild dilation of the common bile duct. Chest x-ray done serially most recently, consolidation in left mid and lower lobe. ABGs: PH 7.356, pCO2 of 30.3, pO2 of 97.6, FiO2 of 40%. Electrolytes: Sodium 147, potassium 3.7, chloride 117, bicarbonate is 18, anion gap of 12, BUN and creatinine 52 and 1.3. AST of 285, ALT of 41. Albumin of 2.0, total protein is 4.8. CBC: White count of 9.8, H and H 8.6, up from 6.6. LDH elevated in 1696. ASSESSMENT: Pneumonitis, complicated by respiratory failure likely has had chronic complicated urinary tract infection as well on the setting of severe sepsis. There is suspicion of underlying leukemia. We will continue broad-spectrum antimicrobial therapy. Discussion has been about she may be transferred, it is not unreasonable. In the interim, we will monitor expectantly. Continue efforts to wean off support. <ELECTRONICALLY SIGNED> By: Chalino Noel MD 04/04/19 1408 [id number] Noel MD /nt
== END 2019-03-31 16:16 | disposition short-term general hospital (02) | DRG 871 ==
LOC: M.ERS 09:51 → M.ICU 10:08 → M.TBA-ER 12:32 → M.2W 12:32 → M.ICU 03-30 10:23
PROVIDERS: Family Medicine; Internal Medicine; Internal Medicine Cardiovascular Disease; Internal Medicine Nephrology; Internal Medicine Pulmonary Disease; ADMIT Internal Medicine
PROC: 02HV33Z Insertion of Infusion Device into Superior Vena Cava, Percutaneous Approach (ICD-10-PCS; principal; 2019-03-29)
PROC: 30233R1 Transfusion of Nonautologous Platelets into Peripheral Vein, Percutaneous Approach (ICD-10-PCS; principal; 2019-03-29)
PROC: 5A1945Z Respiratory Ventilation, 24-96 Consecutive Hours (ICD-10-PCS; principal; 2019-03-29)
PROC: 0B9J8ZX Drainage of Left Lower Lung Lobe, Via Natural or Artificial Opening Endoscopic, Diagnostic (ICD-10-PCS; principal; 2019-03-29)
PROC: 30233N1 Transfusion of Nonautologous Red Blood Cells into Peripheral Vein, Percutaneous Approach (ICD-10-PCS; principal; 2019-03-29)
PROC: 0BH17EZ Insertion of Endotracheal Airway into Trachea, Via Natural or Artificial Opening (ICD-10-PCS; principal; 2019-03-29)
DX: A41.9 Sepsis, unspecified organism (principal); J15.6 Pneumonia due to other Gram-negative bacteria; G92 Toxic encephalopathy; J96.00 Acute respiratory failure, unspecified whether with hypoxia or hypercapnia; R65.21 Severe sepsis with septic shock; N17.9 Acute kidney failure, unspecified; K92.2 Gastrointestinal hemorrhage, unspecified; N39.0 Urinary tract infection, site not specified; E44.0 Moderate protein-calorie malnutrition; E87.0 Hyperosmolality and hypernatremia; I10 Essential (primary) hypertension; T40.601A Poisoning by unspecified narcotics, accidental (unintentional), initial encounter; D69.6 Thrombocytopenia, unspecified; G89.29 Other chronic pain; F17.210 Nicotine dependence, cigarettes, uncomplicated; E86.9 Volume depletion, unspecified; E83.52 Hypercalcemia; E86.0 Dehydration; E88.09 Other disorders of plasma-protein metabolism, not elsewhere classified; Z98.61 Coronary angioplasty status; Z79.1 Long term (current) use of non-steroidal anti-inflammatories (NSAID); Z79.899 Other long term (current) drug therapy; Y92.89 Other specified places as the place of occurrence of the external cause; Z86.73 Personal history of transient ischemic attack (TIA), and cerebral infarction without residual deficits; Z79.82 Long term (current) use of aspirin; Z68.28 Body mass index [BMI] 28.0-28.9, adult